=== PATIENT | male | born 1965 | race Caucasian/White ===

== ENCOUNTER 2020-04-20 18:31 | Inpatient (IN) | payer BC, SELFPAY ==
[~2020-04-20] VITALS: Ht 167.6 cm; Wt 72.6 kg
[2020-04-20 19:10] VITALS: BP 122/75
--- NOTE | 2020-04-20 19:10 | NUR ---
TO TENT AMBULATORY
[2020-04-20 20:17] LABS: BASOPHILS % (AUTO) 0.1 % (0.0-2.0); HEMATOCRIT 39.6 % (36-52); HEMOGLOBIN 13.3 g/dL (12.0-18.0); LYMPHOCYTES # (AUTO) 0.3 K/uL (2.0-11.5); LYMPHOCYTES % (AUTO) 2.4 % (20.5-51.1); MEAN CORPUSCULAR HEMOGLOBIN 27 pg (27-31); MEAN CORPUSCULAR HGB CONC 34 g/dL (33-37); MEAN CORPUSCULAR VOLUME 81.4 fL (80-94); MONOCYTES # (AUTO) 0.3 K/uL (0.8-1.0); MONOCYTES % (AUTO) 2.6 % (1.7-9.3); NEUTROPHILS # (AUTO) 11.6 K/uL (1.8-7.7); NEUTROPHILS % (AUTO) 94.9 % (42.2-75.2); PLATELET COUNT (AUTO) 214 K/uL (140-450); RED BLOOD CELL COUNT(AUTO) 4.86 MIL/uL (4.20-6.10); RED CELL DISTRIBUTION WIDTH 13.6 % (11.6-13.7); WHITE BLOOD COUNT (AUTO) 12.2 K/uL (4.8-10.8)
[2020-04-20 20:36] LABS: PROTHROMBIN TIME 10.8 secs (10.8-13.4)
[2020-04-20 20:40] LABS: ALBUMIN 3.2 g/dL (3.4-5.0); ANION GAP 14.9 (8-16); CARBON DIOXIDE 28.5 mmol/L (21-32); CREATININE 1.2 mg/dL (0.6-1.3); POTASSIUM 3.4 mmol/L (3.5-5.1); TOTAL BILIRUBIN 1.7 mg/dL (0.0-1.0)
[2020-04-20 21:09] LABS: C-REACTIVE PROTEIN QUANT 24.4 mg/dL (0.0-0.9)
[2020-04-20] MEDS ORDERED: DEXAMETHASONE 10 MG/ML VIAL IVP ONE (21:10)
[2020-04-20] MEDS ORDERED: AZITHROMYCIN 500 MG in DEXTROSE 5% 250 ML IV ONE (21:10)
[2020-04-20 21:12] LABS: CKMB RELATIVE INDEX 0.1 (0.0-2.5); CREATINE KINASE MB 0.5 ng/mL (0-3.6)
[2020-04-20] MEDS ORDERED: LORazepam 2 MG/ML VIAL IVP PRN (23:00)
[2020-04-20] MEDS ORDERED: HYDROcodone/APAP 5/325 MG 1 TAB TAB PO PRN (23:00)
[2020-04-20] MEDS ORDERED: ONDANSETRON 4 MG/2 ML VIAL IVP PRN (23:00)
--- NOTE | 2020-04-20 23:22 | NUR ---
PT MOVED TO ER BED 9
[2020-04-20] MEDS ORDERED: remdesivir COMMUNICATION ORDER 1 EA MISC MC PRN (23:30)
[2020-04-20] MEDS ORDERED: AZITHROMYCIN 500 MG INJ VIAL IV ONE (23:42)
[2020-04-20] MEDS ORDERED: cefTRIAXone 1,000 MG VIAL ONE (23:42)
[2020-04-20] MEDS ORDERED: DEXAMETHASONE 10 MG/ML VIAL ONE (23:43)
--- NOTE | 2020-04-21 00:53 | NUR ---
Right AC 18g initiated. left Forearm 20g. pt tolerated well.
[2020-04-21] MEDS: ALBUTEROL 0.083% 2.5 MG/3 ML NEBU INH SCH ×4 (01:00→19:00)
[2020-04-21] MEDS: IPRATROPIUM 0.02% 0.5 MG/2.5 ML NEBU INH SCH ×4 (01:00→19:00)
[2020-04-21] MEDS: DEXT 5% /NACL 0.9% 1,000 ML IV SCH ×2 (01:55→11:13)
--- NOTE | 2020-04-21 02:27 | NUR ---
LAB STATED THAT THEY NEED TO ORDER CONVALESCENT PLASMA WHICH MAY TAKE A WHILE NO ETA FOR PLASMA YET BUT CONSENT IS SIGNED AND READY
--- NOTE | 2020-04-21 02:30 | NUR ---
RECEIVED REPORT FROM AISHA MORSE FOR CONTINUATION OF CARE AT THIS TIME.
--- NOTE | 2020-04-21 02:35 | NUR ---
CONSENT FORM SIGNED FOR CONVALESCENT PLASMA. LAB AWARE.
--- NOTE | 2020-04-21 02:45 | NUR ---
PT IS ASLEEP. VISIBLE RISE AND FALL OF CHEST NOTED. PT IS CONNECTED TO THE RETAIL MARKETING MANAGER. PT IS NOT IN ANY ACUTE DISTRESS AT THIS TIME. BED IS LOCKED AND IN LOWEST POSITION. SIDE RAILSX1. WILL CONTINUE TO MONITOR.
--- NOTE | 2020-04-21 03:30 | NUR ---
PT REMINDED OF THE NEED OF A URINE SPECIMEN COLLECTION, PT PROVIDED WITH A URINAL
--- NOTE | 2020-04-21 03:45 | NUR ---
MRSA SWAB AND UA COLLECTED AND WALKED OVER TO LAB
--- NOTE | 2020-04-21 04:30 | NUR ---
CONSENT FORM SIGNED FOR CT WITH CONTRAST, RADIOLOGY NOTIFIED OF CONSENT FORM
--- NOTE | 2020-04-21 04:40 | NUR ---
PT IS RESTING. VISIBLE RISE AND FALL OF CHEST NOTED. PT IS CONNECTED TO THE EXPANDING MACHINE OPERATOR. PT IS NOT IN ANY ACUTE DISTRESS AT THIS TIME. BED IS LOCKED AND IN LOWEST POSITION. SIDE RAILSX1. WILL CONTINUE TO MONITOR.
--- NOTE | 2020-04-21 04:58 | NUR ---
Per Lab, pt is AB+ for Convalescent plasma, lab to order plasma and will not arrive until 7-14 days.
--- NOTE | 2020-04-21 05:00 | NUR ---
PISTON MAKER UNABLE TO TAKE PT TO CT WITHOUT CONSENT FORM BEING SIGNED BY ADMIT
[2020-04-21 05:03] LABS: APPEARANCE,URINE CLEAR (CLEAR); BILIRUBIN,URINE NEGATIVE (NEGATIVE); BLOOD, URINE 2+ (NEGATIVE); COLOR,URINE YELLOW (YELLOW); LEUKOCYTE ESTERASE ,URINE NEGATIVE (NEGATIVE); NITRITE, URINE NEGATIVE (NEGATIVE); UGLUCOSE TRACE (NEGATIVE)
[2020-04-21 05:18] LABS: RBC,URINE 0-5 /HPF (0-5); WBC,URINE 0-5 /HPF (0-5)
--- NOTE | 2020-04-21 06:17 | NUR ---
PT IS RESTING. VISIBLE RISE AND FALL OF CHEST NOTED. PT IS CONNECTED TO THE BURIAL AGENT. D5NS RUNNING PER MD ORDERS. PT IS NOT IN ANY ACUTE DISTRESS AT THIS TIME. BED IS LOCKED AND IN LOWEST POSITION. SIDE RAILSX1. WILL CONTINUE TO MONITOR.
--- NOTE | 2020-04-21 07:23 | NUR ---
Report received from AISHA Herman, transfer of care at this time.
--- NOTE | 2020-04-21 07:54 | NUR ---
Spoke with pharmacist states Remdesivir should not be given to pt due to high AST/ALT. Pharmacist will page Dr. Sheffield.
--- NOTE | 2020-04-21 08:17 | NUR ---
Pt in bed with HOB elevated, provided breakfast tray, VSS, will continue to monitor.
[2020-04-21] MEDS: ASCORBIC ACID 500 MG TAB PO SCH (08:24)
[2020-04-21] MEDS: DEXAMETHASONE 4 MG/ML VIAL IVP SCH (08:24)
[2020-04-21] MEDS: CHOLECALCIFEROL 1,000 IU TAB PO SCH (08:25)
[2020-04-21] MEDS ORDERED: ENOXAPARIN 40 MG/0.4 ML SYR SUBQ SCH (09:00)
--- NOTE | 2020-04-21 10:23 | NUR ---
Pt to restroom with W/C assistance. VSS, will continue to monitor.
[2020-04-21 10:34] LABS: BASOPHILS % (AUTO) 0.1 % (0.0-2.0); HEMATOCRIT 35.3 % (36-52); HEMOGLOBIN 12.1 g/dL (12.0-18.0); LYMPHOCYTES # (AUTO) 0.3 K/uL (2.0-11.5); LYMPHOCYTES % (AUTO) 2.1 % (20.5-51.1); MEAN CORPUSCULAR HEMOGLOBIN 28 pg (27-31); MEAN CORPUSCULAR HGB CONC 34 g/dL (33-37); MEAN CORPUSCULAR VOLUME 80.7 fL (80-94); MONOCYTES # (AUTO) 0.2 K/uL (0.8-1.0); MONOCYTES % (AUTO) 1.9 % (1.7-9.3); NEUTROPHILS # (AUTO) 11.9 K/uL (1.8-7.7); NEUTROPHILS % (AUTO) 95.9 % (42.2-75.2); PLATELET COUNT (AUTO) 206 K/uL (140-450); RED BLOOD CELL COUNT(AUTO) 4.37 MIL/uL (4.20-6.10); RED CELL DISTRIBUTION WIDTH 13.7 % (11.6-13.7); WHITE BLOOD COUNT (AUTO) 12.4 K/uL (4.8-10.8)
[2020-04-21 10:56] LABS: ANION GAP 13.9 (8-16); CARBON DIOXIDE 27.3 mmol/L (21-32); POTASSIUM 3.2 mmol/L (3.5-5.1)
[2020-04-21 11:05] LABS: MAGNESIUM 2.9 mg/dL (1.8-2.4); PHOSPHORUS 2.5 mg/dL (2.5-4.9)
--- NOTE | 2020-04-21 12:17 | NUR ---
Dr. Sheffield signed consent for CT with contrast, placed in pt chart.
--- NOTE | 2020-04-21 12:32 | NUR ---
Pt repositioned self for comfort, HOB elevated, VSS, will continue to monitor.
--- NOTE | 2020-04-21 12:44 | NUR ---
Pulmonolist at pt bedside for evaluation.
--- NOTE | 2020-04-21 12:44 | NUR ---
Pt taken to CT contrast via gurney.
--- NOTE | 2020-04-21 12:57 | NUR ---
PT BACK FROM CT VIA [facility]RICA
--- NOTE | 2020-04-21 14:24 | NUR ---
Per pt statement on a vegetarian diet. Spoke with dietary to confirm.
--- NOTE | 2020-04-21 16:00 | NUR ---
Collected repeat COVID YUNG ordered by Dr. Harkins, and influenza A & B.
--- NOTE | 2020-04-21 18:24 | NUR ---
Pt resting, HOB elevated, VSS, will continue to monitor.
--- NOTE | 2020-04-21 19:21 | NUR ---
Gave report to AISHA Tavares, transfer of care at this time.
--- NOTE | 2020-04-21 19:45 | NUR ---
Pt repositioned for comfort. Pt provided urinal at this time.
--- NOTE | 2020-04-21 20:04 | NUR ---
Spoke w/ Dr. Sheffield and updated him on pt status.
[2020-04-21] MEDS: ATORVASTATIN 20 MG TAB PO SCH (21:20)
[2020-04-21] MEDS: ENOXAPARIN 80 MG/0.8 ML SYR SUBQ SCH (21:28)
--- NOTE | 2020-04-21 22:14 | NUR ---
Patient will be admitted to care of DR INMAN. Admited to TELEMETRY. Will go to room 116. Belongings list completed. Report to CAYLA LEONARD.
--- NOTE | 2020-04-21 22:23 | NUR ---
Updated Dr. Harkins on patient status at this time. Informed him pt is being moved to Room 116 at this time.
--- NOTE | 2020-04-21 22:41 | NUR ---
PT ARRIVED FROM ED TO UNIT VIA GURNEY. PT AAOX4, AMBULATORY, ABLE TO MAKE NEEDS KNOWN. CALM AND COOPERATIVE TO CARE. PT ON O2 4LPM/NC. PT NOT IN DISTRESS. ABDOMEN IS SOFT AND NON-TENDER. SKIN IS WARM, DRY, AND INTACT. PT WITH IV ACCESS ON RIGHT AC AND LEFT FA IN PLACE, SALINE LOCKED. PT DENIES ANY PAIN OR DISCOMFORT AT THIS TIME. MRSA SWAB TAKEN, VS TAKEN. PT FEBRILE. NO REQUESTS MADE AT THIS TIME. PT KEPT COMFORTABLE. SAFETY MEASURES IN PLACE. CALL LIGHT WITHIN REACH. WILL CONTINUE TO MONITOR.
[2020-04-21 22:45] VITALS: BP 109/65
--- NOTE | 2020-04-21 22:56 | NUR ---
PATIENT TRANSFERRED TO ROOM 116 AT 2241. RECEIVING NURSE CAYLA LEONARD AT BEDSIDE.
[2020-04-21] MEDS: ACETAMINOPHEN 325 MG TAB PO PRN (23:10)
--- NOTE | 2020-04-21 23:10 | NUR ---
TEMP 102.1, PRN TYLENOL GIVEN ORDERED. COOLING MEASURES IN PLACE. WILL CONTINUE TO MONITOR.
[2020-04-22] VITALS: BP 103/64
--- NOTE | 2020-04-22 01:56 | NUR ---
PT ASLEEP. O2 IN PLACE. VISIBLE CHEST RISE AND FALL NOTED. NO S/SX OF DISTRESS NOTED. PT KEPT COMFORTABLE. CALL LIGHT WITHIN REACH. WILL CONTINUE TO MONITOR.
[2020-04-22 04:00] VITALS: BP 116/78
--- NOTE | 2020-04-22 04:04 | NUR ---
VS STABLE. PT AFEBRILE. PT IN BED RESTING. DENIES ANY PAIN OR DISCOMFORT AT THIS TIME. O2 IN PLACE. PT NOT IN DISTRESS. SAFETY MEASURES IN PLACE. CALL LIGHT WITHIN REACH. WILL CONTINUE TO MONITOR.
--- NOTE | 2020-04-22 07:37 | NUR ---
ENDORSED TO DAY SHIFT NURSE FOR CONTINUITY OF CARE
--- NOTE | 2020-04-22 07:38 | NUR ---
RECEIVED REPORT FROM SERVICE TECHNICIAN RN FOR CONTINUITY OF CARE. PATIENT AWAKE, RESTING IN BED, AAOX4. ABLE TO MAKE NEEDS KNOWN. EMPTIED URINARY WITH ORANGE URINE. ON 4L NC. RESPIRATORY EVEN AND UNLABORED. DENIES PAIN OR DISCOMFORT AT THIS TIME. ABDOMEN SOFT, NON TENDER. K+ LEVEL 3.2 NOTED FROM YESTERDAY'S LAB RESULT. NO PRN MEDICATION BEEN GIVEN, WILL REPORT TO ADMITTING DR. INMAN. INFORMED PATIENT TO PRESS CALL LIGHT IF NEEDS ANY ASSISTANCE. SAFETY MEASURES IN PLACE, WILL CONTINUE TO MONITOR.
--- NOTE | 2020-04-22 07:45 | NUR ---
EUGENIA ANTONIO MADE AWARE THAT PT'S POTASSIUM LEVEL 3.2 YESTERDAY AND NO PRN MEDS BEEN GIVEN.
[2020-04-22 07:56] LABS: BASOPHILS % (AUTO) 0.2 % (0.0-2.0); HEMATOCRIT 35.7 % (36-52); HEMOGLOBIN 12.1 g/dL (12.0-18.0); LYMPHOCYTES # (AUTO) 0.4 K/uL (2.0-11.5); LYMPHOCYTES % (AUTO) 3.8 % (20.5-51.1); MEAN CORPUSCULAR HEMOGLOBIN 28 pg (27-31); MEAN CORPUSCULAR HGB CONC 34 g/dL (33-37); MEAN CORPUSCULAR VOLUME 81.6 fL (80-94); MONOCYTES # (AUTO) 0.4 K/uL (0.8-1.0); MONOCYTES % (AUTO) 3.8 % (1.7-9.3); NEUTROPHILS # (AUTO) 8.7 K/uL (1.8-7.7); NEUTROPHILS % (AUTO) 92.2 % (42.2-75.2); PLATELET COUNT (AUTO) 240 K/uL (140-450); RED BLOOD CELL COUNT(AUTO) 4.38 MIL/uL (4.20-6.10); WHITE BLOOD COUNT (AUTO) 9.5 K/uL (4.8-10.8)
[2020-04-22 08:00] VITALS: BP 144/90
[2020-04-22] MEDS ORDERED: POTASSIUM CHLORIDE 10 MEQ TABER PO ONE (08:05)
[2020-04-22 08:16] LABS: ALBUMIN 2.2 g/dL (3.4-5.0); ANION GAP 11.5 (8-16); CARBON DIOXIDE 28.1 mmol/L (21-32); POTASSIUM 3.6 mmol/L (3.5-5.1); TOTAL BILIRUBIN 1.5 mg/dL (0.0-1.0)
[2020-04-22 08:27] LABS: MAGNESIUM 3.1 mg/dL (1.8-2.4); PHOSPHORUS 4.1 mg/dL (2.5-4.9)
[2020-04-22] MEDS: DEXAMETHASONE 4 MG/ML VIAL IVP SCH (08:59)
[2020-04-22] MEDS: CHOLECALCIFEROL 1,000 IU TAB PO SCH (08:59)
[2020-04-22] MEDS: ASCORBIC ACID 500 MG TAB PO SCH (08:59)
[2020-04-22] MEDS: ENOXAPARIN 80 MG/0.8 ML SYR SUBQ SCH ×2 (09:02→21:40)
--- NOTE | 2020-04-22 09:04 | NUR ---
SCHEDULED MEDICATIONS GIVEN, EDUCATION PROVIDED. INFORMED PATIENT TO RELAX AND TAKE DEEP BREATH. VERBALIZED UNDERSTANDING. SAFETY MEASURES IN PLACE. NO ACUTE DISTRESS NOTED. WILL CONTINUE TO MONITOR.
--- NOTE | 2020-04-22 09:44 | NUR ---
WAS INFORMED BY THE CLINICAL APPEALS AUDITOR THAT PATIENT'S HR 135. CHECKED THE PATIENT. HE STATED THAT HE IS OK. DENIES CHEST PAIN OR HEART DISCOMFORT. STATED THAT OCCASIONAL TROUBLE BREATHING. ENCOURAGED PATIENT TO TAKE DEEP BREATH AND RELAX. PRESS CALL LIGHT BUTTON IF FEEL DISCOMFORT OR NEEDS ANYTHING. PRIMARY MD DR. INMAN AND CARDIOLOGY DR. INMAN INFORMED. WILL FOLLOW UP.
--- NOTE | 2020-04-22 10:17 | NUR ---
CARDIOLOGY DR. INMAN CAME TO CHECK THE PATIENT. UPDATED PT'S CONDITION. WILL FOLLOW UP.
[2020-04-22] MEDS ORDERED: NACL 0.9% 500 ML IV SCH (10:35)
[2020-04-22 12:00] VITALS: BP 113/73
--- NOTE | 2020-04-22 12:05 | NUR ---
500ML OF NS GIVEN VIA BOLUS PER MD ORDER. ENCOURAGED PATIENT TO INCREASE FLUID INTAKE. VERBALIZED UNDERSTANDING. WILL CONTINUE TO MONITOR.
[2020-04-22] MEDS: ACETAMINOPHEN 325 MG TAB PO PRN (12:17)
--- NOTE | 2020-04-22 12:20 | NUR ---
TYLENOL GIVEN FOR TEMP 102.5. O2 SAT 91% WITH 6L NC. SAFETY MEASURES IN PLACE, WILL CONTINUE TO MONITOR.
--- NOTE | 2020-04-22 13:42 | NUR ---
TRANSFERRED PATIENT FROM 116 TO 118 WITH COOK CHIEF'S HELP. PICTURE FRAME MAKER CALLED TO COME TO FIX THE COOLING SYSTEM IN ROOM 116. PATIENT IN STABLE CONDITION.
--- NOTE | 2020-04-22 15:49 | NUR ---
NAOMIE ASSISTANT PASTRY CHEF: LATE ENTRY: RECEIVED ORDER FOR HOME O2, FOLLOWED UP WITH CONY AT [facility]. AT THIS TIME PATIENT WOULD BE RODRÍGUEZ PAY BECAUSE OUT OF POCKET DEDUCTIBLE HAS NOT BEEN MET. Addendum: 04/22/20 at 1645 by Meagan Florez NAOMIE SCHWARTZNER: RECEIVED A CALL FROM CONY HE WAS ABLE TO VERIFY PATIENTS INSURANCE. IT WILL BE COVERED, HOME O2 WILL BE DELIVERED TO BEDSIDE. Addendum: 04/25/20 at 1138 by Hafsa Saeed CM SUNIL LENZ [facility] [phone], UPDATED OF THE PATIENT'S CONDITION. Addendum: 04/25/20 at 1524 by Ines Reynoso RN DC PLANNING: SEEN BY CONSULTANTS [place] ON 4L/NC SATING 92% ARRANGED HOME O2 ALREADY , DC PLAN AWAITING FOR CONVALESCENT PLASMA. CM TO FOLLOW Addendum: 04/26/20 at 1430 by Ines Reynoso RN DC PLANNING: CALLED DR INMAN REGARDING THE DC PLANING PER MD HAS TO WAIT FOR O2 TO BE 4-5L/NC PT IS ON 6L/NC SATING 97% DC PLAN TO WEAN OF O2 TO 4 L/NC CM TO FOLLOW Addendum: 04/27/20 at 0928 by Meagan Florez CM NAOMIE MISTRY: VERIFIED WITH AISHA COBOS THAT PATIENTS HOME O2 HAS BEEN DELIVERED
[2020-04-22 16:00] VITALS: BP 107/72
--- NOTE | 2020-04-22 16:49 | NUR ---
RECEIVED CALL FROM BLOOD BANK. AB POSITIVE PLASMA NOT AVAILABLE AT THIS TIME.
--- NOTE | 2020-04-22 18:34 | NUR ---
RECEIVED A CALL FROM LAB. COVID PCR RESULT POSITIVE.
--- NOTE | 2020-04-22 18:58 | NUR ---
DR. ROSASAL BEEN INFORMED THAT PATIENT'S COVID RESULT POSITIVE AND PLASMA NOT READY YET.
--- NOTE | 2020-04-22 19:22 | NUR ---
ENDORSED PATIENT TO NITROCELLULOSE MAKER RN FOR CONTINUITY OF CARE. PATIENT IN STABLE CONDITION WITH 6L NC.
--- NOTE | 2020-04-22 19:23 | NUR ---
RECEIVED REPORT FROM AM SHIFT. PT AAOX4, AMBULATORY, ABLE TO MAKE NEEDS KNOWN. CALM AND COOPERATIVE TO CARE. PT ON O2 6LPM/NC. PT NOT IN DISTRESS. ABDOMEN IS SOFT AND NON-TENDER. SKIN IS WARM, DRY, AND INTACT. PT WITH IV ACCESS ON RIGHT AC G18 AND LEFT FA G20 IN PLACE, SALINE LOCKED. PT DENIES ANY PAIN OR DISCOMFORT AT THIS TIME. NO REQUESTS MADE AT THIS TIME. PT KEPT COMFORTABLE. SAFETY MEASURES IN PLACE. CALL LIGHT WITHIN REACH. WILL CONTINUE TO MONITOR.
[2020-04-22 20:00] VITALS: BP 141/91
[2020-04-22] MEDS: AZITHROMYCIN 500 MG in DEXTROSE 5% 250 ML IV SCH (21:39)
[2020-04-22] MEDS: ATORVASTATIN 20 MG TAB PO SCH (21:39)
--- NOTE | 2020-04-22 21:40 | NUR ---
VS STABLE. SCHEDULED MEDS GIVEN ORDERED. O2 IN PLACE, PT NOT IN DISTRESS. NO REQUESTS MADE. PT KEPT COMFORTABLE. CALL LIGHT WITHIN REACH. WILL CONTINUE TO MONITOR.
--- NOTE | 2020-04-22 22:16 | NUR ---
PT ASSISTED TO BEDSIDE COMMODE AND BACK TO BED. PT TOLERATED WELL. NO DISTRESS NOTED. O2 IN PLACE. CALL LIGHT WITHIN REACH. WILL CONTINUE TO MONITOR.
[2020-04-23] VITALS: BP 121/86
--- NOTE | 2020-04-23 00:02 | NUR ---
VS STABLE. PT RESTING IN BED WITH HOB ELEVATED. PT DENIES ANY PAIN OR DISCOMFORT. NO REQUESTS MADE AT THIS TIME. PT KEPT SAFE AND COMFORTABLE. CALL LIGHT WITHIN REACH. WILL CONTINUE TO MONITOR.
--- NOTE | 2020-04-23 02:11 | NUR ---
ASLEEP. VISIBLE CHEST RISE AND FALL NOTED. O2 IN PLACE. NO S/SX OF DISTRESS NOTED. SAFETY MEASURES IN PLACE. WILL CONTINUE TO MONITOR.
[2020-04-23 04:00] VITALS: BP 114/76
--- NOTE | 2020-04-23 04:26 | NUR ---
VS STABLE. PERINEAL CARE DONE WITH SKIN SPECIALIST. PT TOLERATED WELL. PT KEPT COMFORTABLE. SAFETY MEASURES IN PLACE. CALL LIGHT WITHIN REACH. WILL CONTINUE TO MONITOR.
--- NOTE | 2020-04-23 07:43 | NUR ---
RECEIVED REPORT FROM NIGHT NURSE FOR CONTINUITY OF CARE. PT IS STABLE. PT ON 6L VIA NC. PT HAS RA 18G SALINE LOCK AND LF 20G SALINE LOCK. SKIN INTACT. SAFETY MEASURES IN PLACE, CALL LIGHT WITHIN REACH, WILL CONTINUE TO MONITOR.
--- NOTE | 2020-04-23 07:43 | NUR ---
ENDORSED TO DAY SHIFT NURSE FOR CONTINUITY OF CARE
[2020-04-23 08:00] VITALS: BP 124/86
[2020-04-23 08:38] LABS: BASOPHILS % (AUTO) 0.3 % (0.0-2.0); HEMATOCRIT 38.2 % (36-52); HEMOGLOBIN 12.6 g/dL (12.0-18.0); LYMPHOCYTES # (AUTO) 0.7 K/uL (2.0-11.5); LYMPHOCYTES % (AUTO) 8.3 % (20.5-51.1); MEAN CORPUSCULAR HEMOGLOBIN 27 pg (27-31); MEAN CORPUSCULAR HGB CONC 33 g/dL (33-37); MEAN CORPUSCULAR VOLUME 83.1 fL (80-94); MONOCYTES # (AUTO) 0.5 K/uL (0.8-1.0); MONOCYTES % (AUTO) 6.2 % (1.7-9.3); NEUTROPHILS # (AUTO) 6.8 K/uL (1.8-7.7); NEUTROPHILS % (AUTO) 85.2 % (42.2-75.2); PLATELET COUNT (AUTO) 278 K/uL (140-450); RED CELL DISTRIBUTION WIDTH 13.9 % (11.6-13.7)
[2020-04-23 10:07] LABS: ANION GAP 14.7 (8-16); CARBON DIOXIDE 26.1 mmol/L (21-32); CREATININE 0.9 mg/dL (0.6-1.3); POTASSIUM 3.8 mmol/L (3.5-5.1)
[2020-04-23] MEDS: ENOXAPARIN 80 MG/0.8 ML SYR SUBQ SCH ×2 (10:50→20:09)
[2020-04-23] MEDS: ASCORBIC ACID 500 MG TAB PO SCH (10:53)
[2020-04-23] MEDS: CHOLECALCIFEROL 1,000 IU TAB PO SCH (10:54)
[2020-04-23] MEDS: DEXAMETHASONE 4 MG/ML VIAL IVP SCH (10:54)
--- NOTE | 2020-04-23 11:03 | NUR ---
ADMINISTERED SCHEDULED MEDICATION, MEDICATION EDUCATION PROVIDED. PT TOLERATED WELL. PT IS STABLE, WILL CONTINUE TO MONITOR.
[2020-04-23 11:16] LABS: MAGNESIUM 2.4 mg/dL (1.8-2.4); PHOSPHORUS 2.8 mg/dL (2.5-4.9)
[2020-04-23 12:00] VITALS: BP 128/80
[2020-04-23 13:23] LABS: CHOL/HDL RATIO 3.9 (1-4.5)
[2020-04-23 16:00] VITALS: BP 126/87
--- NOTE | 2020-04-23 18:25 | NUR ---
CALLED BLOOD BANK, CONVALESCENT PLASMA FOR PT IS NOT HERE. WILL ENDORSE TO NIGHT NURSE TO FOLLOW UP.
[2020-04-23] MEDS: ALBUTEROL 0.083% 2.5 MG/3 ML NEBU INH SCH ×2 (19:00→19:49)
[2020-04-23] MEDS: IPRATROPIUM 0.02% 0.5 MG/2.5 ML NEBU INH SCH ×2 (19:00→19:49)
--- NOTE | 2020-04-23 19:34 | NUR ---
RECEIVED REPORT FROM DAY RN. PT AAOX4, AMBULATORY, ABLE TO MAKE NEEDS KNOWN. RESPIRATIONS ARE EQUAL AND UNLABORED ON O2 6LPM/NC. PT NOT IN DISTRESS. ABDOMEN IS SOFT AND NON-TENDER. SKIN IS WARM, DRY, AND INTACT. PT WITH IV ACCESS ON RIGHT AC G18 AND LEFT FA G20 IN PLACE, SALINE LOCKED. PT DENIES ANY PAIN OR DISCOMFORT AT THIS TIME. NO REQUESTS MADE AT THIS TIME. ON DROPLET ISOLATION. SAFETY MEASURES IN PLACE. CALL LIGHT WITHIN REACH. WILL CONTINUE TO MONITOR.
--- NOTE | 2020-04-23 19:34 | NUR ---
ENDORSE PT TO NIGHT NURSE FOR CONTINUITY OF CARE
[2020-04-23 20:00] VITALS: BP 134/93
[2020-04-23] MEDS: ATORVASTATIN 20 MG TAB PO SCH (20:08)
--- NOTE | 2020-04-23 20:08 | NUR ---
VITAL SIGNS ARE WITHIN NORMAL LIMITS. PT SAT WELL 96% RR 18 ON 6L NC, LENIN MEDICATIONS GIVEN PER ORDERS. APPLIED OXYGEN EXTENSION FOR PT TO AMBULATE TO BATHROOM. PER PT HE WILL WAIT UNTIL AFTER DINNER. ALL NEEDS MET. CALL LIGHT IS WITHIN REACH.
[2020-04-23] MEDS: AZITHROMYCIN 500 MG in DEXTROSE 5% 250 ML IV SCH (21:05)
--- NOTE | 2020-04-23 21:05 | NUR ---
IV ABX NOW INFUSING PER ORDERS. ALL NEEDS MET. CALL LIGHT IS WITHIN REACH.
[2020-04-24] VITALS: BP 129/88
--- NOTE | 2020-04-24 | NUR ---
VITAL SIGNS ARE WITHIN NORMAL LIMITS. NO S/S OF DISTRESS. DENIES PAIN. ALL NEEDS MET. CALL LIGHT IS WITHIN REACH.
--- NOTE | 2020-04-24 02:11 | NUR ---
ROUNDS MADE. PT IS SLEEPING COMFORTABLY IN BED WITH EYES CLOSED. CHEST RISE AND FALL NOTED. NO S/S OF DISTRESS. SAFETY MEASURES ARE IN PLACE.
[2020-04-24 04:00] VITALS: BP 118/78
--- NOTE | 2020-04-24 04:00 | NUR ---
VITAL SIGNS ARE WITHIN NORMAL LIMITS. PT DENIES ANY PAIN OR DISCOMFORT. ALL SAFETY MEASURES ARE IN PLACE. WILL CONTINUE TO MONITOR.
--- NOTE | 2020-04-24 07:20 | NUR ---
GAVE BEDSIDE REPORT TO DAY RN. PT ENDORSED IN STABLE CONDITION.
--- NOTE | 2020-04-24 07:25 | NUR ---
REC'D BEDSIDE ENDORSEMENT FROM NIGHTSHIFT NURSE. WILL PROCEED W/ CONTINUITY OF CARE.
[2020-04-24 08:00] VITALS: BP 106/78
[2020-04-24 08:07] LABS: HEPATITIS A ANTIBODY IGM Negative (Negative); HEPATITIS B CORE AB TOTAL Negative (Negative); HEPATITIS B SURFACE ANTIBODY Non Reactive (.); HEPATITIS B SURFACE ANTIGEN Negative (Negative)
[2020-04-24 08:53] LABS: MAGNESIUM 2.3 mg/dL (1.8-2.4); PHOSPHORUS 3.6 mg/dL (2.5-4.9)
[2020-04-24] MEDS: ASCORBIC ACID 500 MG TAB PO SCH (09:00)
[2020-04-24] MEDS: DEXAMETHASONE 4 MG/ML VIAL IVP SCH (09:01)
[2020-04-24] MEDS: CHOLECALCIFEROL 1,000 IU TAB PO SCH (09:01)
[2020-04-24] MEDS: ENOXAPARIN 80 MG/0.8 ML SYR SUBQ SCH ×2 (09:02→20:46)
--- NOTE | 2020-04-24 09:26 | NUR ---
ADMINISTERED PRESCRIBED MEDS PER MD ORDER. PATIENT TOLERATED WELL. MEDICATION EDUCATION PROVIDED. PATIENT VERBALIZED UNDERSTANDING. SAFETY MEASURES IN PLACE. WILL CONT TO MONITOR.
[2020-04-24 09:30] LABS: ALBUMIN 2.4 g/dL (3.4-5.0); ANION GAP 16.8 (8-16); CARBON DIOXIDE 25.1 mmol/L (21-32); CREATININE 0.9 mg/dL (0.6-1.3); MAGNESIUM 2.4 mg/dL (1.8-2.4); PHOSPHORUS 3.5 mg/dL (2.5-4.9); POTASSIUM 3.9 mmol/L (3.5-5.1); TOTAL BILIRUBIN 1.1 mg/dL (0.0-1.0)
--- NOTE | 2020-04-24 10:30 | NUR ---
HOURLY ROUNDING PERFORMED. PATIENT LYING IN BED. REQ EYEGLASSES. NO SIGNS OF DISCOMFORT OR DISTRESS. PATIENT ABLE TO MAKE NEEDS KNOWN. SAFETY MEASURES IN PLACE. WILL CONT TO MONITOR.
[2020-04-24 12:00] VITALS: BP 142/87
[2020-04-24 12:58] LABS: BASOPHILS # (AUTO) 0.1 K/uL (0.00-0.22); EOSINOPHILS % (AUTO) 0.2 % (0.0-4.0); HEMATOCRIT 41.9 % (36-52); HEMOGLOBIN 13.8 g/dL (12.0-18.0); LYMPHOCYTES # (AUTO) 0.9 K/uL (2.0-11.5); LYMPHOCYTES % (AUTO) 12.8 % (20.5-51.1); MEAN CORPUSCULAR HEMOGLOBIN 28 pg (27-31); MEAN CORPUSCULAR HGB CONC 33 g/dL (33-37); MEAN CORPUSCULAR VOLUME 84.7 fL (80-94); MONOCYTES # (AUTO) 0.4 K/uL (0.8-1.0); NEUTROPHILS # (AUTO) 5.6 K/uL (1.8-7.7); PLATELET COUNT (AUTO) 336 K/uL (140-450); RED BLOOD CELL COUNT(AUTO) 4.94 MIL/uL (4.20-6.10); RED CELL DISTRIBUTION WIDTH 13.6 % (11.6-13.7)
[2020-04-24] MEDS: IPRATROPIUM 0.02% 0.5 MG/2.5 ML NEBU INH SCH ×2 (13:00→19:00)
[2020-04-24] MEDS: ALBUTEROL 0.083% 2.5 MG/3 ML NEBU INH SCH ×2 (13:00→19:00)
--- NOTE | 2020-04-24 13:46 | NUR ---
CONVALESCENT PLASMA HAS BEEN ORDERED BY ON 04/21/20. PENDING DELIVERY OF PLASMA. WENT TO BLOOD BANK FOR STATUS UPDATE. BLOOD BANK STATED THEY NEEDED THE ORDER, PER AUDIT TRAIL THE LAB ENTERED THE ORDER ON 04/22/20 AT 1644. WAS TOLD TO COME BACK AFTER 1400 WHEN THAT HOSPITAL ATTENDANT WILL BE IN. UPDATED CHARGE NURSE OF STATUS.
--- NOTE | 2020-04-24 15:09 | NUR ---
PER BLOOD BANK DUE TO PATIENT'S BLOOD TYPE CONVALESCENT PLASMA CAN TAKE 4-5 DAYS TO BE REC'D. BLOOD BANK WILL NOTIFY ONCE RECEIVED.
--- NOTE | 2020-04-24 15:30 | NUR ---
HOURLY ROUNDING PERFORMED. PATIENT SITTING UPRIGHT AT BED W/ PT. PATIENT IS ABLE TO MAKE NEEDS KNOWN. PATIENT DOWN FROM 6L TO 4L NC, SPO2 87% ON ACTIVITY, 92% AT REST. WILL CONT TO MONITOR.
[2020-04-24 16:00] VITALS: BP 113/76
--- NOTE | 2020-04-24 16:17 | NUR ---
04/24/20 RD INITIAL ASSESSMENT COMPLETED PLEASE REFER TO NUTRITION ASSESSMENT UNDER CARE ACTIVITY FOR ESTIMATED NUTRITIONAL NEEDS. 1. CONTINUE VEGETARIAN REGULAR DIET TOLERATED 2. RECOMMEND ENSURE TID 3. ENCOURAGE PO INTAKE ABOVE 75% OF MEALS 4. RD TO FOLLOW-UP 3-5 DAYS, MODERATE RISK SAMY MURO, RD
--- NOTE | 2020-04-24 19:30 | NUR ---
RECEIVED REPORT FROM DAY RN. PT AAOX4, AMBULATORY, ABLE TO MAKE NEEDS KNOWN. RESPIRATIONS ARE EQUAL AND UNLABORED ON O2 4LPM/NC. PT NOT IN DISTRESS. ABDOMEN IS SOFT AND NON-TENDER. SKIN IS WARM, DRY, AND INTACT. PT WITH IV ACCESS ON RIGHT AC G18 AND LEFT FA G20 IN PLACE, SALINE LOCKED. PT DENIES ANY PAIN OR DISCOMFORT AT THIS TIME. PT IS IN GOOD SPIRITS PER PT HE HAS BEEN GETTING UP AND AMBULATING IN ROOM AND IS FEELING BETTER, NO REQUESTS MADE AT THIS TIME. ON DROPLET ISOLATION. SAFETY MEASURES IN PLACE. CALL LIGHT WITHIN REACH. WILL CONTINUE TO MONITOR.
[2020-04-24 20:00] VITALS: BP 101/78
--- NOTE | 2020-04-24 20:44 | NUR ---
VITAL SIGNS ARE STABLE. PT SAT WELL ON 4LNC SAT 95% RR 20 NON LABORED. PT DENIES SOB. LENIN MEDICATIONS GIVEN PER ORDERS. MED EDUCATION GIVEN. PT VERBALIZED UNDERSTANDING. CALL LIGHT IS WITHIN REACH. WILL CONTINUE TO MONITOR.
[2020-04-24] MEDS: ATORVASTATIN 20 MG TAB PO SCH (20:45)
--- NOTE | 2020-04-24 21:26 | NUR ---
IV ABX NOW INFUSING PER ORDERS. PT ATE APPROX 20% OF DINNER. OFFERED PT SNACK LEFT PUDDING AT BEDSIDE. ALL NEEDS MET. CALL LIGHT IS WITHIN REACH. WILL CONTINUE TO MONITOR.
[2020-04-24] MEDS: AZITHROMYCIN 500 MG in DEXTROSE 5% 250 ML IV SCH (21:28)
--- NOTE | 2020-04-24 22:30 | NUR ---
PATIENT AMBULATED TO BATHROOM WITH STEADY GAIT. DENIES ANY DIZZINESS OR SOB. PT BACK IN BED. ALL NEEDS MET. CALL LIGHT IS WITHIN REACH.
--- NOTE | 2020-04-25 | NUR ---
ROUNDS MADE. PT IS LAYING IN BED WITH EYES CLOSED. CHEST RISE AND FALL NOTED. NO S/S OF DISTRESS. CALL LIGHT IS WITHIN REACH.
[2020-04-25] MEDS: ALBUTEROL 0.083% 2.5 MG/3 ML NEBU INH SCH ×4 (01:00→19:00)
[2020-04-25] MEDS: IPRATROPIUM 0.02% 0.5 MG/2.5 ML NEBU INH SCH ×4 (01:00→19:00)
--- NOTE | 2020-04-25 01:54 | NUR ---
F/U WITH BLOOD BLANK PLASMA NOT READY.
--- NOTE | 2020-04-25 04:00 | NUR ---
VITAL SIGNS ARE WITHIN NORMAL LIMITS. ALL SAFETY MEASURES ARE IN PLACE. WILL CONTINUE TO MONITOR.
--- NOTE | 2020-04-25 06:20 | NUR ---
REMINDED PATIENT ON NEED FOR SPUTUM CX. SPECIMEN CUP IS AT BEDSIDE. ALL NEEDS MET. CALL LIGHT IS WITHIN REACH.
--- NOTE | 2020-04-25 07:14 | NUR ---
GAVE BEDSIDE REPORT TO DAY RN. PT ENDORSED IN STABLE CONDITION.
--- NOTE | 2020-04-25 07:15 | NUR ---
RECEIVED PATIENT FROM NIGHT NURSE. PATIENT IN BED SLEEPING, CHEST NOTED RISING. NO NOTED ACUTE S/S DISTRESS. RESP EVEN AND UNLABORED ON 4L NC. DROPLET PRECAUTION OBSERVED. SAFETY MEASURES IN PLACE. HOB ELEVATED. CALL LIGHT WITHIN REACH. WILL CONTINUE TO MONITOR.
[2020-04-25 08:00] VITALS: BP 99/71
[2020-04-25 08:45] LABS: BASOPHILS % (AUTO) 0.3 % (0.0-2.0); EOSINOPHILS % (AUTO) 0.4 % (0.0-4.0); HEMATOCRIT 39.9 % (36-52); HEMOGLOBIN 13.1 g/dL (12.0-18.0); LYMPHOCYTES % (AUTO) 13.3 % (20.5-51.1); MEAN CORPUSCULAR HEMOGLOBIN 28 pg (27-31); MEAN CORPUSCULAR HGB CONC 33 g/dL (33-37); MEAN CORPUSCULAR VOLUME 83.7 fL (80-94); MONOCYTES # (AUTO) 0.4 K/uL (0.8-1.0); NEUTROPHILS # (AUTO) 6.4 K/uL (1.8-7.7); PLATELET COUNT (AUTO) 321 K/uL (140-450); RED BLOOD CELL COUNT(AUTO) 4.77 MIL/uL (4.20-6.10); RED CELL DISTRIBUTION WIDTH 13.6 % (11.6-13.7); WHITE BLOOD COUNT (AUTO) 7.9 K/uL (4.8-10.8)
[2020-04-25 08:50] LABS: ANION GAP 14.1 (8-16); CARBON DIOXIDE 25.9 mmol/L (21-32)
[2020-04-25 08:52] LABS: MAGNESIUM 2.8 mg/dL (1.8-2.4); PHOSPHORUS 3.4 mg/dL (2.5-4.9)
[2020-04-25 09:02] LABS: ALBUMIN 2.3 g/dL (3.4-5.0); BILIRUBIN,DIRECT 0.3 mg/dL (0.0-0.3); TOTAL BILIRUBIN 0.8 mg/dL (0.0-1.0)
[2020-04-25] MEDS: ENOXAPARIN 80 MG/0.8 ML SYR SUBQ SCH ×2 (09:37→21:52)
[2020-04-25] MEDS: ASCORBIC ACID 500 MG TAB PO SCH (09:39)
[2020-04-25] MEDS: DEXAMETHASONE 4 MG/ML VIAL IVP SCH (09:39)
[2020-04-25] MEDS: CHOLECALCIFEROL 1,000 IU TAB PO SCH (09:40)
--- NOTE | 2020-04-25 09:50 | NUR ---
PATIENT IN BED AWAKE AND ALERT. RESP EVEN AND UNLABORED ON 5L NC, O2SAT 92%. DENIED OF PAIN AT THIS TIME. NO ACUTE S/S DISTRESS NOTED. RAC 18G AND LFA 20G INTACT AND PATENT, SL. PATIENT ABLE TO MAKE NEEDS KNOWN AND FOLLOW COMMANDS. MORNING ROUTINE MEDICATIONS GIVEN. PATIENT TOLERATED WELL. PLAN OF CARE DISCUSSED, PATIENT VERBALIZED UNDERSTANDING. SAFETY MEASURES IN PLACE. CALL LIGHT WITHIN REACH. WILL CONTINUE TO MONITOR.
--- NOTE | 2020-04-25 11:45 | NUR ---
PATIENT IN BED SLEEPING. CHEST NOTED RISING. NO NOTED ACUTE S/S DISTRESS. CALL LIGHT WITHIN REACH. WILL CONTINUE TO MONITOR.
--- NOTE | 2020-04-25 14:15 | NUR ---
PATIENT SITTING IN CHAIR BY BEDSIDE, AWAKE AND ALERT, USING CELL PHONE. NO NOTED ACUTE S/S DISTRESS. NEEDS ARE MET. CALL LIGHT WITHIN REACH. WILL CONTINUE TO MONITOR.
[2020-04-25 16:00] VITALS: BP 103/76
--- NOTE | 2020-04-25 17:25 | NUR ---
PATIENT AMBULATED TO THE BATHROOM WITHOUT ANY ASSIST AND WITH STEADY GAIT. RESP EVEN AND UNLABORED ON 5L NC, O2SAT 96%. NO NOTED ACUTE S/S DISTRESS. CALL LIGHT WITHIN REACH. WILL CONTINUE TO MONITOR.
--- NOTE | 2020-04-25 19:45 | NUR ---
ENDORSED PATIENT TO NIGHT NURSE. PATIENT IN STABLE CONDITION.
[2020-04-25 20:00] VITALS: BP 127/82
[2020-04-25] MEDS: ATORVASTATIN 20 MG TAB PO SCH (21:42)
--- NOTE | 2020-04-26 | NUR ---
MADE ROUNDS , NO S/SX OF ACUTE DISTRESS NOTED . CALL LIGHT WITHIN REACH .
[2020-04-26] MEDS: IPRATROPIUM 0.02% 0.5 MG/2.5 ML NEBU INH SCH ×4 (01:00→19:00)
[2020-04-26] MEDS: ALBUTEROL 0.083% 2.5 MG/3 ML NEBU INH SCH ×4 (01:00→19:00)
--- NOTE | 2020-04-26 02:00 | NUR ---
SLEEPING - CHEST RISE AND FALL EQUALLY .
[2020-04-26 04:00] VITALS: BP 90/57
--- NOTE | 2020-04-26 04:00 | NUR ---
O2 SAT WNL . NO S/X OF ACUTE DISTRESS NOTED . CALL LIGHT WITHIN REACH .
--- NOTE | 2020-04-26 05:56 | NUR ---
AWAKE ON COMPLAIN MADE . CALL LIGHT WITHIN REACH
--- NOTE | 2020-04-26 07:20 | NUR ---
ENDORSED - PT - STABLE .
--- NOTE | 2020-04-26 07:20 | NUR ---
RECEIVED REPORT FROM NIGHT NURSE FOR CONTINUITY OF CARE, PT IS STABLE. PT ON 6L NC. PT ON BEDREST. PT HAS RAC 18 AND LFA 20G SALINE LOCK, SKIN INTACT. SAFETY MEASURES IN PLACE, WILL CONTINUE TO MONITOR.
[2020-04-26 08:00] VITALS: BP 101/70
[2020-04-26 08:17] LABS: BASOPHILS # (AUTO) 0.1 K/uL (0.00-0.22); BASOPHILS % (AUTO) 1.2 % (0.0-2.0); EOSINOPHILS % (AUTO) 0.2 % (0.0-4.0); HEMATOCRIT 37.2 % (36-52); HEMOGLOBIN 12.4 g/dL (12.0-18.0); LYMPHOCYTES # (AUTO) 0.9 K/uL (2.0-11.5); LYMPHOCYTES % (AUTO) 13.2 % (20.5-51.1); MEAN CORPUSCULAR HEMOGLOBIN 28 pg (27-31); MEAN CORPUSCULAR HGB CONC 33 g/dL (33-37); MEAN CORPUSCULAR VOLUME 83.6 fL (80-94); MONOCYTES # (AUTO) 0.5 K/uL (0.8-1.0); MONOCYTES % (AUTO) 6.9 % (1.7-9.3); NEUTROPHILS # (AUTO) 5.2 K/uL (1.8-7.7); NEUTROPHILS % (AUTO) 78.5 % (42.2-75.2); PLATELET COUNT (AUTO) 316 K/uL (140-450); RED BLOOD CELL COUNT(AUTO) 4.45 MIL/uL (4.20-6.10); RED CELL DISTRIBUTION WIDTH 13.7 % (11.6-13.7); WHITE BLOOD COUNT (AUTO) 6.7 K/uL (4.8-10.8)
[2020-04-26 08:25] LABS: ALBUMIN 2.2 g/dL (3.4-5.0); CREATININE 0.9 mg/dL (0.6-1.3); MAGNESIUM 2.9 mg/dL (1.8-2.4); PHOSPHORUS 3.3 mg/dL (2.5-4.9); POTASSIUM 4.3 mmol/L (3.5-5.1); TOTAL BILIRUBIN 0.8 mg/dL (0.0-1.0)
[2020-04-26 08:40] LABS: ANION GAP 13.7 (8-16); CARBON DIOXIDE 26.6 mmol/L (21-32)
[2020-04-26] MEDS: ENOXAPARIN 80 MG/0.8 ML SYR SUBQ SCH ×2 (09:47→21:38)
[2020-04-26] MEDS: ASCORBIC ACID 500 MG TAB PO SCH (09:49)
[2020-04-26] MEDS: CHOLECALCIFEROL 1,000 IU TAB PO SCH (09:49)
[2020-04-26] MEDS: DEXAMETHASONE 4 MG/ML VIAL IVP SCH (09:51)
--- NOTE | 2020-04-26 09:56 | NUR ---
ADMINISTERED SCHEDULED MEDICATION, MEDICATION EDUCATION PROVIDED. PT TOLERATED WELL. PT IS STABLE, WILL CONTINUE TO MONITOR.
[2020-04-26 16:00] VITALS: BP 96/60
--- NOTE | 2020-04-26 19:40 | NUR ---
ENDORSE PT TO NIGHT NURSE FOR CONTINUITY OF CARE
--- NOTE | 2020-04-26 19:40 | NUR ---
RECEIVED ENDORSEMENT FROM AM SHIFT RN. PT IS AOX4, ON 4L NC, O2 SAT WNL, NO SOB, NO DISTRESS, SAFETY MEASURES IN PLACE PLAN OF CARE DISCUSSED, CALL LIGHT WITHIN REACH.
[2020-04-26 20:00] VITALS: BP 101/71
[2020-04-26] MEDS: ATORVASTATIN 20 MG TAB PO SCH (21:38)
--- NOTE | 2020-04-26 21:49 | NUR ---
PT AWAKE, DUE MEDS GIVEN ORDERED, TOLERATED WELL, F/U THE PLASMA, NO AVAILABLE FOR BLOOD TYPE AB YET, THEY SAID THAT THEY WILL GIVE ME A CALL ONCE AVAILABLE.
[2020-04-27 04:00] VITALS: BP 96/65
--- NOTE | 2020-04-27 07:30 | NUR ---
PT IS STABLE, NO SOB, NO DISTRESS, NO ACUTE CHANGES THE WHOLE SHIFT, BEDSIDE ENDORSEMENT GIVEN TO AM SHIFT RN FOR CONTINUITY OF CARE.
[2020-04-27 08:00] VITALS: BP 91/62
--- NOTE | 2020-04-27 08:09 | NUR ---
RECEIVED REPORT FROM NECKTIE STITCHER RN FOR CONTINUITY OF CARE. PATIENT SITTING IN THE CHAIR WITH 3L NC. DENIES PAIN OR SOB. PATIENT COMPLAINTS OF DRY NOSE DUE TO THE OXYGEN. RT CALLED, KARLOS STATED SHE WILL COME AND CHECK. SKIN WARM AND DRY, INTACT. IV SITE LEFT FOREARM 20G, AND RIGHT AC SALINE LOCK. PLAN OF CARE DISCUSSED. NO ACUTE DISTRESS NOTED. SAFETY MEASURES IN PLACE, WILL CONTINUE TO MONITOR.
[2020-04-27 08:47] LABS: ANION GAP 10.4 (8-16); CARBON DIOXIDE 27.2 mmol/L (21-32); CREATININE 0.9 mg/dL (0.6-1.3); POTASSIUM 3.6 mmol/L (3.5-5.1)
[2020-04-27 08:52] LABS: BASOPHILS # (AUTO) 0.1 K/uL (0.00-0.22); BASOPHILS % (AUTO) 1.1 % (0.0-2.0); EOSINOPHILS % (AUTO) 0.8 % (0.0-4.0); HEMATOCRIT 36.7 % (36-52); HEMOGLOBIN 12.4 g/dL (12.0-18.0); LYMPHOCYTES # (AUTO) 1.2 K/uL (2.0-11.5); LYMPHOCYTES % (AUTO) 20.8 % (20.5-51.1); MEAN CORPUSCULAR HEMOGLOBIN 28 pg (27-31); MEAN CORPUSCULAR HGB CONC 34 g/dL (33-37); MEAN CORPUSCULAR VOLUME 82.6 fL (80-94); MONOCYTES # (AUTO) 0.3 K/uL (0.8-1.0); MONOCYTES % (AUTO) 5.5 % (1.7-9.3); NEUTROPHILS # (AUTO) 4.3 K/uL (1.8-7.7); NEUTROPHILS % (AUTO) 71.8 % (42.2-75.2); PLATELET COUNT (AUTO) 283 K/uL (140-450); RED BLOOD CELL COUNT(AUTO) 4.45 MIL/uL (4.20-6.10); RED CELL DISTRIBUTION WIDTH 13.5 % (11.6-13.7)
[2020-04-27 08:53] LABS: ALBUMIN 2.2 g/dL (3.4-5.0); BILIRUBIN,DIRECT 0.2 mg/dL (0.0-0.3); TOTAL BILIRUBIN 0.6 mg/dL (0.0-1.0)
[2020-04-27 09:22] LABS: MAGNESIUM 2.2 mg/dL (1.8-2.4); PHOSPHORUS 2.9 mg/dL (2.5-4.9)
[2020-04-27] MEDS: ENOXAPARIN 80 MG/0.8 ML SYR SUBQ SCH (10:43)
[2020-04-27] MEDS: CHOLECALCIFEROL 1,000 IU TAB PO SCH (10:45)
[2020-04-27] MEDS: ASCORBIC ACID 500 MG TAB PO SCH (10:45)
[2020-04-27] MEDS: DEXAMETHASONE 4 MG/ML VIAL IVP SCH (10:45)
--- NOTE | 2020-04-27 11:46 | NUR ---
CONTACTED Parish ANTONIO- UPDATED WITH PT'S OXYGEN SATURATION OF 95% ON 3LPM VIA NASAL CANNULA, PT TOLERATED O2 WEANING WELL, NO SOB NOTED. O2 CONCENTRATOR AND PORTABLE O2 TANK ALREADY DELIVERED OUTSIDE PT'S ROOM. PER DR. INMAN, HE WILL COME AND DISCHARGE PT TODAY.
--- NOTE | 2020-04-27 11:55 | NUR ---
INSTRUCTED THE PATIENT HOW TO USE THE HOME OXYGEN CONCENTRATOR. VERBALIZED UNDERSTANDING. DR. INMAN CAME TO CHECK THE PATIENT AND STATED THAT HE WILL TEACH THE PATIENT AGAIN ABOUT THE OXYGEN USE. PATIENT IN STABLE CONDITION WITH 3L NC.
[2020-04-27] MEDS ORDERED: DEC4 PO (13:04)
[2020-04-27] MEDS ORDERED: APIX5TAB PO (13:04)
[2020-04-27 13:28] VITALS: BP 91/62
--- NOTE | 2020-04-27 13:30 | NUR ---
PT SEEN BY DR. INMAN, A.- DISCHARGE ORDER WRITTEN. DR. INMAN STATED THAT SOMEBODY WILL BUSINESS APPLICATIONS SPECIALIST PT TODAY. RN ASSIGNED MADE AWARE.
[2020-04-27] MEDS ORDERED: FLU VACCINE QS2020-21 0.5 ML SYR IMVAC SCH (13:45)
--- NOTE | 2020-04-27 14:20 | NUR ---
DISCHARGE INSTRUCTIONS PROVIDED. VERBALIZED UNDERSTANDING. PER DR. INMAN, HOLD FLU VACCINE FOR THIS PATIENT. DISCHARGE PROTOCOL FOLLOWED. IN STABLE CONDITION.
--- NOTE | 2020-04-27 14:28 | NUR ---
SENT PATIENT TO THE PATIENT'S FAMILY WITH PORTAL O2, ON 3L NC. CONCENTRATOR AND ALL BELONGINGS TAKEN. PATIENT IN STABLE CONDITION.
--- NOTE | 2020-04-27 14:30 | NUR ---
RETURNED THE FLU VACCINE PULLED OUT FROM THE [facility] TO THE PHARMACY. NOT ABLE TO RETURN TO THE [facility] DUE TO PATIENT'S INFO BEEN REMOVED.
== END 2020-04-27 14:25 | disposition home or self-care (01) | DRG 871 ==
LOC: MED 18:31 → MTU 23:00
PROVIDERS: ADMIT Preventive Medicine Preventive Medicine/Occupational Environmental Medicine; ATTEND Preventive Medicine Preventive Medicine/Occupational Environmental Medicine
DX: A41.9 Sepsis, unspecified organism (principal); U07.1 COVID-19; J12.82 Pneumonia due to coronavirus disease 2019; J96.01 Acute respiratory failure with hypoxia; E78.5 Hyperlipidemia, unspecified; R74.01 Elevation of levels of liver transaminase levels; E88.09 Other disorders of plasma-protein metabolism, not elsewhere classified; R73.9 Hyperglycemia, unspecified; E83.52 Hypercalcemia; E87.6 Hypokalemia; Z79.01 Long term (current) use of anticoagulants; R31.9 Hematuria, unspecified; R94.5 Abnormal results of liver function studies; E78.00 Pure hypercholesterolemia, unspecified; E83.41 Hypermagnesemia
CPT/HCPCS: 36415; 36600; 71045; 71270; 76700; 80048; 80053; 80076; 81001; 82550; 82553; 82728; 82803; 83036; 83605; 83615; 83735; 83880; 84100; 84484; 85025; 85379; 85384; 85610; 85651; 85730; 86140; 86704; 86706; 86708; 86709; 86803; 86886; 86900; 86901; 87040; 87081; 87086; 87340; 87804; 93005; 96365; 96367; 96375; 97110; 97116; 97161-GP; 97530; 99291; J0456; J0696; J1100; J1650; J7030; J7060; Q9967; U0003